=== PATIENT | female | born 1985 | race Caucasian/White ===

== ENCOUNTER 2018-06-20 17:13 | Outpatient (RCR) | payer BC ==
[~2018-06-20] VITALS: Ht 165.1 cm; Wt 89.3 kg
[2018-06-20] MEDS ORDERED: AMOXICILLIN 8751 TAB PO (17:33)
[2018-06-20] MEDS ORDERED: BACTROBAN 22GM22 GM TP (17:33)
[2018-07-04 13:27] VITALS: BP 133/84; PULSE 78; TEMP 98.7
== END 2018-09-18 ==
LOC: EUO
DX: Z23 Encounter for immunization (principal)
CPT/HCPCS: 90375

== ENCOUNTER 2018-06-27 14:03 | Emergency (ER) | payer BC ==
[~2018-06-27] VITALS: Ht 165.1 cm; Wt 86.4 kg
[~2018-06-27 14:03] MED LIST: AMOXICILLIN 8751 TAB PO; BACTROBAN 22GM22 GM TP
[2018-06-27 14:22] VITALS: BP 129/77; PULSE 75; TEMP 98.9
== END 2018-06-27 14:43 | disposition home or self-care (01) ==
LOC: COL.ER 14:03
DX: Z20.3 Contact with and (suspected) exposure to rabies (principal); Z23 Encounter for immunization